=== PATIENT | male | born 1965 | race Caucasian/White ===

== ENCOUNTER 2018-02-20 14:30 | Emergency (ER) | payer MEDICARE ==
[~2018-02-20] VITALS: Ht 182.9 cm; Wt 104.5 kg
[~2018-02-20 14:30] MED LIST: DEPAKOTE500 M1; HUMALOG100 U/ML; LANTUS100 U/ML; METFORMIN500 MG; REMERON15 MG; ZOCOR5 MG PO; [UNRECOGNIZED DRUG - REMARK]
[2018-02-20 15:15] LABS: EOS # 0.2 (0.04-0.40); EOS % 1.7 % (0.0-4.0); HEMATOCRIT 41.6 % (42.0-52.0); HEMOGLOBIN 13.5 g/dL (13.5-18.0); LYMPH# 2.8 (1.50-4.00); MEAN CELL VOLUME 89 fl (78-100); MEAN CORPUSCULAR HEMOGLOBIN 29 pg (27-31); MEAN CORPUSCULAR HGB CONC 33 g/dL (33-37); MEAN PLATELET VOLUME 11.1 fl (7.4-10.4); NEU # 4.6 (1.40-6.50); PLATELET COUNT 181 K/mm3 (130-400); RED CELL DISTRIBUTION WIDTH 14.5 % (11.5-14.5); WHITE BLOOD COUNT 8.6 K/mm3 (4.8-10.8)
[2018-02-20] MEDS ORDERED: RISPERIDONE2 M2 PO (15:19)
[2018-02-20] MEDS ORDERED: GABAPENTIN100 MG PO (15:19)
[2018-02-20] MEDS ORDERED: ATORVASTATIN CA40 MG PO (15:20)
[2018-02-20 15:54] LABS: ALBUMIN 4.2 g/dL (3.5-5.0); ALT/SGPT 57 U/L (21-72); AST-SGOT 39 U/L (17-59); CALCIUM 8.6 mg/dL (8.4-10.2); CARBON DIOXIDE 25 mmol/L (22-30); GLUCOSE 155 mg/dL (75-110); POTASSIUM 3.5 mmol/L (3.6-5.0); SODIUM 138 mmol/L (137-145); TOTAL BILIRUBIN 1.1 mg/dL (0.2-1.3)
[2018-02-20 15:56] LABS: ACETAMINOPHEN < 4 ug/mL (10-30); ALCOHOL IN-HOUSE < 10 mg/dL
[2018-02-20 16:57] LABS: PH-URINE 5.5 (5.0 - 8.0); URINE APPEARANCE CLEAR; URINE BILIRUBIN NEGATIVE (NEGATIVE); URINE BLOOD NEGATIVE (NEGATIVE); URINE COLOR YELLOW; URINE GLUCOSE NEGATIVE (NEGATIVE); URINE KETONE NEGATIVE (NEGATIVE); URINE LEUKOCYTE ESTERASE NEGATIVE (NEGATIVE); URINE NITRATE NEGATIVE (NEGATIVE); URINE PROTEIN(semi-quant) NEGATIVE (NEGATIVE); URINE UROBILINOGEN NORMAL (NORMAL)
[2018-02-20 16:58] LABS: URINE MUCUS PRESENT (NOT PRESENT)
[2018-02-21 10:38] VITALS: BP 150/83
== END 2018-02-21 10:42 | disposition home or self-care (01) ==
LOC: ED 14:30
PROVIDERS: Nurse Practitioner Primary Care
DX: T43.592A Poisoning by other antipsychotics and neuroleptics, intentional self-harm, initial encounter (principal); Y92.009 Unspecified place in unspecified non-institutional (private) residence as the place of occurrence of the external cause; E11.9 Type 2 diabetes mellitus without complications; Z79.4 Long term (current) use of insulin; F17.200 Nicotine dependence, unspecified, uncomplicated; R00.0 Tachycardia, unspecified; Z79.899 Other long term (current) drug therapy
CPT/HCPCS: J7030

== ENCOUNTER 2018-04-13 13:07 | Emergency (ER) | payer MEDICARE, MEDICAID ==
[~2018-04-13] VITALS: Ht 177.8 cm; Wt 81.8 kg
[~2018-04-13 13:07] MED LIST changes: +ATORVASTATIN CA40 MG PO; +GABAPENTIN100 MG PO; +RISPERIDONE2 M2 PO
[2018-04-13] MEDS ORDERED: LISINOPRIL10 MG PO (13:22)
[2018-04-13] MEDS ORDERED: KETOROLAC10 MG PO (14:13)
[2018-04-13 14:44] VITALS: BP 148/91
== END 2018-04-13 14:40 | disposition home or self-care (01) ==
LOC: ED 13:07
DX: M25.512 Pain in left shoulder (principal); I10 Essential (primary) hypertension; E11.9 Type 2 diabetes mellitus without complications
CPT/HCPCS: J1885

== ENCOUNTER → 2019-09-11 | Outpatient (CLI) | payer MEDICARE, MEDICAID ==
[~2019-09-11] MED LIST changes: +KETOROLAC10 MG PO; +LISINOPRIL10 MG PO
== END ==
LOC: RAD 13:48
DX: S69.92XA Unspecified injury of left wrist, hand and finger(s), initial encounter (principal)

== ENCOUNTER → 2021-10-01 | Outpatient (CLI) | payer MEDICARE, MEDICAID | LOC: RAD 09-30 11:00 | DX: J43.9 Emphysema, unspecified (principal); J98.11 Atelectasis; J98.4 Other disorders of lung; Q74.0 Other congenital malformations of upper limb(s), including shoulder girdle | CPT/HCPCS: Q9967 ==

== ENCOUNTER → 2023-11-21 | Outpatient (CLI) | payer MEDICARE, MEDICAID ==
[~2023-11-21] MED LIST changes: +GLUCOPHAGE PO; +PRILOSEC OTC20 MG PO; +ZOFRAN ODT4 MG PO
== END ==
LOC: RAD 12:00
DX: Q74.0 Other congenital malformations of upper limb(s), including shoulder girdle (principal); R13.10 Dysphagia, unspecified

== ENCOUNTER → 2023-11-23 | Outpatient (CLI) | payer MEDICARE, MEDICAID | LOC: RAD 14:56 | DX: R13.10 Dysphagia, unspecified (principal) ==

== ENCOUNTER → 2024-01-15 | Day surgery (SDC) | payer MEDICARE, MEDICAID ==
[~2024-01-15] MED LIST changes: +Lidocaine PF 2% (20 MG/ML) 2 ML VIAL ONE; +Lidocaine PF 2% (20 MG/ML) 5 ML VIAL ONE
== END | disposition home or self-care (01) ==
LOC: MSO
DX: K21.9 Gastro-esophageal reflux disease without esophagitis (principal); K44.9 Diaphragmatic hernia without obstruction or gangrene; Z12.11 Encounter for screening for malignant neoplasm of colon; K63.5 Polyp of colon; Z79.899 Other long term (current) drug therapy
CPT/HCPCS: 00813; J2704; J7120